=== PATIENT | male | born 1965 | race Caucasian/White ===

== ENCOUNTER → 2023-07-18 09:00 | Outpatient (BNVA) | payer OTHER, SELFPAY | PROVIDERS: Visit Provider Internal Medicine | DX: M70.32 Other bursitis of elbow, left elbow (principal); S56.592A Other injury of other extensor muscle, fascia and tendon at forearm level, left arm, initial encounter; W22.8XXA Striking against or struck by other objects, initial encounter | CPT/HCPCS: 29125; 99203 ==

== ENCOUNTER → 2023-07-21 10:47 | Outpatient (BNVA) | payer OTHER, SELFPAY | PROVIDERS: Visit Provider Physician Assistant Medical | DX: S56.592A Other injury of other extensor muscle, fascia and tendon at forearm level, left arm, initial encounter (principal); W22.8XXA Striking against or struck by other objects, initial encounter; M70.32 Other bursitis of elbow, left elbow | CPT/HCPCS: 99213 ==

== ENCOUNTER 2023-07-25 10:12 | Outpatient (AMB) | payer OTHER, BC, SELFPAY ==
--- NOTE | 2023-07-25 10:17 | MHC.OFFVIS ---
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 Patient reports that he was cleaning the floor with a machine, he had fell and trying to catch his fall he slammed his elbow on the machine. He was seen at [facility] and was placed in a splint. He has been out of work since his injury. Currently sharp pain with movement of his arm. He has been elevating, icing, and ibuprofen. 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 The patient reports on 07/18/2023 he was cleaning the floor with a machine when he went to fall. In the process of stopping his fall he hit his elbow on the machine he was using. He confirms being seen at [facility] twice and being placed in a splint. While in the office today he reports sharp in with movement of the left elbow. He confirm elevating, icing, and the use of ibuprofen. This is a work related injury, which occurred on 07/18/2023. He reports he has been out of work since the injury. 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 Area of ecchymosis at the dorsal aspect of the forearm. No open wounds. Circumferential edema at the elbow mostly located over the olecranon. Severe tenderness to palpation over the olecranon and medial epicondyle. Moderate tenderness to palpation over the lateral elbow. Able to perform pronation, supination, flexion, and extension with out deficits. Sensation intact. Radial pulse intact. Assessment & Plan Assessment & Plan (1) Contusion of left elbow: Code(s): S50.02XA - Contusion of left elbow, initial encounter Qualifiers: Encounter type: initial encounter Qualified Code(s): S50.02XA - Contusion of left elbow, initial encounter Plan Mr. Markham is a 57-year-old male who presents in the office today, as a new patient, for an evaluation of left elbow pain. The patient reports on 07/18/2023 he was cleaning the floor with a machine when he went to fall. In the process of stopping his fall he hit his elbow on the machine he was using. He confirms being seen at [facility] twice and being placed in a splint. While in the office today he reports sharp in with movement of the left elbow. He confirm elevating, icing, and the use of ibuprofen. This is a work related injury, which occurred on 07/18/2023. He reports he has been out of work since the injury. I have ordered a stat MRI to rule out any concern for fracture or ligament/tendon injury. He was given a work note stating he may return to work for light duty with no use of the left upper extremity. I have sent in a prescription for Valium 5 mg PO daily PRN; 2 tablets. 1 tablet is to be taking 30 minutes prior to MRI. Follow up will be after the MRI is obtained, or sooner if needed. X-rays of the left elbow which were obtained while in the office today and were reviewed by me, Suzie Peters PA-C, revealed no acute fracture or dislocation. Orders: Orders XR elbow LT min 3V Today M25.529 - Pain in unspecified elbow MR elbow LT wo con Today S50.02XA - Contusion of left elbow, initial encounter Medications: New diazepam (Valium) 5 mg PO DAILY PRN 2 tabs 0RF anxiety 1 tab 30mins before MRI Patient Instructions: Scribed for Suzie Peters PA-C by Nadya Way biomedical engineering professor, on 07/25/2023 at 10:18 am, EST. Coding Level of Care Code New Pt Level 4 (77821) Diagnoses Contusion of left elbow, initial encounter S50.02XA Encounter type: initial encounter
[2023-07-25 10:31] VITALS: BMI 29.8
== END 2023-07-25 10:57 | disposition home or self-care (01) ==
PROVIDERS: Visit Provider Physician Assistant
DX: S50.02XA Contusion of left elbow, initial encounter (principal)
CPT/HCPCS: 99204

== ENCOUNTER 2023-07-25 10:12 | Outpatient (REF) | payer OTHER, SELFPAY ==
--- NOTE | ~2023-07-25 | XR_ITS ---
EXAMINATION: XR ELBOW, LEFT CLINICAL INFORMATION: Left elbow pain COMPARISON: 07/18/2023 TECHNIQUE: AP, lateral, and oblique views of the left elbow. FINDINGS: There is no fracture or dislocation. There is stable exostosis in the distal humeral bone projecting anterior, suggestive for tug lesion and there is stable soft tissue calcifications of the triceps tendon/distal muscle. No joint effusion seen. XR/XR elbow LT min 3V IMPRESSION: No interval change
== END 2023-07-25 10:13 | disposition home or self-care (01) ==
LOC: HO.HOSX 10:12
PROVIDERS: Visit Provider Physician Assistant
DX: S50.02XA Contusion of left elbow, initial encounter (principal)
CPT/HCPCS: 73080; 99202

== ENCOUNTER 2023-08-02 11:56 | Outpatient (REF) | payer OTHER, BC, SELFPAY | END 2023-08-02 11:57 | disposition home or self-care (01) | LOC: HO.MRI 11:56 | PROVIDERS: Visit Provider Physician Assistant | DX: Z13.89 Encounter for screening for other disorder (principal) ==

== ENCOUNTER 2023-09-15 13:44 | Outpatient (AMB) | payer OTHER, BC, SELFPAY ==
--- NOTE | 2023-09-15 13:46 | A.OFFVIS_ITS ---
Intake Vital Signs 09/15/23 13:54 Height 5 ft 11 in Weight 214 lb BMI 29.8 Handedness Right Intake Visit Reasons: Ov- Left elbow MRI follow up Intake Note: Matthew is a 58 year old right hand dominant male who presents today for a evaluation of his left elbow pain. Patient reports he didn't do the MRI due to being claustrophobic. He states that he is not having any pain or discomfort. Patient informed me that he started working out about 2 weeks ago which lead his symptoms to get better. Patient wants his elbow looked at to see if it looks okay. Allergies No Known Allergies Allergy (Verified 07/25/23 10:20) HPI Ov- Left elbow MRI follow up HPI Details 58-year-old right hand dominant male who presents in the office today for a follow up of left elbow pain and review of his MRI. I last saw the patient on 07/25/2023 when the MRI was ordered. He was given a return to work on light duty with no use of the left upper extremity note. The patient reports he did not obtained the MRI due to be claustrophobic. He reports he is not having any pain or discomfort. He states he began to work out about 2 weeks ago, which help his symptoms to get better. He would like for the elbow to be looked at to make sure it looks okay. This is a work related injury, which occurred on 07/18/2023. 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 No ecchymosis, erythema, or edema. No tenderness to palpation over the olecranon. No tenderness to the medial or lateral epicondyle. Slight tenderness to palpation over the tricep attachment. NVI. Assessment & Plan Assessment & Plan (1) Contusion of left elbow: Code(s): S50.02XA - Contusion of left elbow, initial encounter Qualifiers: Encounter type: initial encounter Qualified Code(s): S50.02XA - Contusion of left elbow, initial encounter Plan Mr. Markham is a 58-year-old right hand dominant male who presents in the office today for a follow up of left elbow pain and review of his MRI. I last saw the patient on 07/25/2023 when the MRI was ordered. He was given a return to work on light duty with no use of the left upper extremity note. The patient reports he did not obtained the MRI due to be claustrophobic. He reports he is not having any pain or discomfort. He states he began to work out about 2 weeks ago, which help his symptoms to get better. He would like for the elbow to be looked at to make sure it looks okay. This is a work related injury, which occurred on 07/18/2023. We discussed the role of physical therapy, but the patient reports he has been working out vigorously on his own and has noticed improvements in his symptoms. He would like to continue to use pain as his guide and therefore would like to defer on formal physical therapy at this time. 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 He may return to normal activities as tolerated. Follow up will be PRN, or sooner if needed. Of note: The patient was referred for an open MRI in [place] and a prescription of Valium was supplied for this. However, the patient reported he did not attend due to being claustrophobic. Patient Instructions: Scribed for Suzie Peters PA-C by erin Weaver scribe, on 09/12/2023 at 1:54 pm, EST. Coding Level of Care Code Est Pt Level 3 (97489) Diagnoses Contusion of left elbow, initial encounter S50.02XA Encounter type: initial encounter
[2023-09-15 13:54] VITALS: BMI 29.8
== END 2023-09-15 14:10 | disposition home or self-care (01) ==
PROVIDERS: Visit Provider Physician Assistant
DX: S50.02XA Contusion of left elbow, initial encounter (principal)
CPT/HCPCS: 99213

== ENCOUNTER → 2023-09-15 13:44 | Outpatient (BNVA) | payer OTHER, BC, SELFPAY | PROVIDERS: Visit Provider Physician Assistant | DX: S50.02XA Contusion of left elbow, initial encounter (principal) | CPT/HCPCS: 99212 ==